=== PATIENT | female | born 1995 | race Caucasian/White ===

== ENCOUNTER 2020-05-24 06:27 | Emergency (ER) | payer MEDICAID ==
[~2020-05-24] VITALS: Ht 162.6 cm; Wt 72.6 kg
[2020-05-24 06:39] VITALS: BP 109/60
[2020-05-24] MEDS ORDERED: ONDANSETRON HCL 4 MG/2 ML VIAL IV ONE (07:30)
[2020-05-24] MEDS ORDERED: KETOROLAC TROMETH 30 MG/ML 1ML VIAL IV ONE (07:30)
[2020-05-24] MEDS ORDERED: SODIUM CHLORIDE 0.9% 1,000 ML IV ONE ×2 (07:30→08:15)
[2020-05-24] MEDS ORDERED: FAMOTIDINE (10MG/ML) 2ML VL IV ONE (07:30)
[2020-05-24 07:41] LABS: Basophils # (auto) 0.1 10 ^3/uL (0-0.2); Basophils % (auto) 0.5 % (0.0-2.0); Eosinophils # (auto) 0 10 ^3/uL (0-0.8); Eosinophils % (auto) 0.1 % (0.0-7.0); Hematocrit 41.8 % (36.0-46.0); Hemoglobin 14.5 g/dL (12.2-16.2); Lymphocytes # (auto) 0.7 10 ^3/uL (0.4-5.4); Lymphocytes % (auto) 5.4 % (10.0-50.0); Mean Corpuscular Hgb Conc. 34.5 g/dL (32.0-36.0); Mean Corpuscular Volume 89.7 fL (80.0-100.0); Monocytes # (auto) 0.8 10 ^3/uL (0-1.3); Monocytes % (auto) 6.6 % (0.0-12.0); Neutrophils % (auto) 87.4 % (37.0-80.0); Nucleated Red Blood Cells % 0.1 %; Platelet Count (auto) 257 10^3/uL (140-450); Red Blood Cells 4.67 10^6/uL (4.0-5.20); Red Cell Distribution Width 13.6 % (11.8-14.3); White Blood Cell 12.5 10^3/uL (4.4-10.8)
[2020-05-24 08:02] LABS: Albumin 4.5 g/dL (3.4-5.0); Calcium 9.9 mg/dL (8.5-10.1)
[2020-05-24 08:06] LABS: BUN/Creatinine Ratio 11.4
[2020-05-24] MEDS ORDERED: cefTRIAXone 1GM/50ML D5W 50 ML IV ONE (08:30)
== END 2020-05-24 09:11 | disposition home or self-care (01) ==
LOC: ER 06:27
DX: K29.00 Acute gastritis without bleeding (principal); I88.0 Nonspecific mesenteric lymphadenitis
CPT/HCPCS: 36415; 74176; 80053; 81002; 81025; 83690; 85025; 96361; 96365; 96375; 99284; J0696; J1885; J2405; J3490; J7030